=== PATIENT | male | born 1990 | race Caucasian/White ===

== ENCOUNTER 2018-02-19 22:18 | Emergency (ER) | payer OTHER ==
[2018-02-19] MEDS ORDERED: Cyclobenzaprine TAB* 10 MG PO ONE (22:45)
[2018-02-19] MEDS ORDERED: Ketorolac INJ* 60 MG/2 ML VIAL IM ONE (22:45)
--- NOTE | 2018-02-20 00:07 | ED ---
Jay Santana Nikita, scribed for Michael Baker MD on 02/19/18 at 2245 . Back Pain - HPI Summary HPI Summary: This patient is a 27 year old M BIBA to ED with a chief complaint of lower back pain since 3 days ago. The CC is described as sharp, non-radiating, and worsened since onset. The patient rates the pain 10/10 in severity. Symptoms aggravated by movement and walking. Symptoms alleviated by nothing (patient took 2 ibuprofen in the AM, 2 Advil 1 hour ago). Patient denies urinary problems , focal weakness, and numbness. In 2009, patient reports similar pain due to strenuous activity but has resolved then. - History of Current Complaint Chief Complaint: EDBackInjuryPain Stated Complaint: BACK PAIN Time Seen by Provider: 02/19/18 22:27 Hx Obtained From: Patient Onset/Duration: Sudden Onset, Lasting Days - 3 days ago, Still Present, Worse Since - onset Onset/Duration: Started Days Ago - 3 days ago, Still Present, Worse Since - onset Timing: Constant, Lasting Days - 3 days ago Back Pain Location: Is Discrete @ - lower back Severity Initially: Severe Severity Currently: Severe Pain Intensity: 10 Pain Scale Used: 0-10 Numeric Character: Sharp Aggravating Symptom(s): Movement, Walking Alleviating Symptom(s): Nothing - patient took 2 ibuprofen in the AM, 2 Advil 1 hour ago Associated Signs And Symptoms: Positive: Other - Patient denies urinary problems , focal weakness, and numbness. - Allergies/Home Medications Allergies/Adverse Reactions: Allergies Allergy/AdvReac Type Severity Reaction Status Date / Time No Known Allergies Allergy Verified 02/19/18 22:24 PMH/Surg Hx/FS Hx/Imm Hx Endocrine/Hematology History: Denies: Hx Diabetes Cardiovascular History: Denies: Hx Coronary Artery Disease, Hx Hypertension Musculoskeletal History: Reports: Hx of Fracture(s) - leg - Immunization History Date of Tetanus Vaccine: utd Date of Influenza Vaccine: fall 2016 Infectious Disease History: No Infectious Disease History: Denies: Traveled Outside the [place] in Last 30 Days - Family History Known Family History: Positive: Hypertension Negative: Cardiac Disease, Diabetes - Social History Alcohol Use: Weekly Substance Use Type: Reports: Marijuana Substance Use Comment - Amount & Last Used: last night Smoking Status (MU): Former Smoker Review of Systems Positive: no symptoms reported Positive: Other - lower back pain Neurological: Other - denies focal weakness or numbness All Other Systems Reviewed And Are Negative: Yes Physical Exam - Summary Physical Exam Summary: VITAL SIGNS: Reviewed. GENERAL: ~Patient is a well-developed and nourished MALE who is lying comfortable in the stretcher. Patient is not in any acute respiratory distress. HEAD AND FACE: No signs of trauma. No ecchymosis, hematomas or skull depressions. No sinus tenderness. EYES: PERRLA, EOMI x 2, No injected conjunctiva, no nystagmus. EARS: Hearing grossly intact. Ear canals and tympanic membranes are within normal limits. MOUTH: Oropharynx within normal limits. NECK: Supple, trachea is midline, no adenopathy, no JVD, no carotid bruit, no c- spine tenderness, neck with full ROM. CHEST: Symmetric, no tenderness at palpation LUNGS: Clear to auscultation bilaterally. No wheezing or crackles. CVS: Regular rate and rhythm, S1 and S2 present, no murmurs or gallops appreciated. ABDOMEN: Soft, non-tender. No signs of distention. No rebound, no guarding, and no masses palpated. Bowel sounds are normal. EXTREMITIES: No edema, no cyanosis or clubbing. Bilateral straight leg test is 30 degrees on both sides. MUSCULOSKELETAL: No lumbar cervical tenderness. NEURO: Alert and oriented x 3. No acute neurological deficits. Speech is normal and follows commands. SKIN: Dry and warm Triage Information Reviewed: Yes Vital Signs On Initial Exam: Initial Vitals Temp Pulse Resp BP Pulse Ox 99.4 F 65 16 105/51 100 02/19/18 22:23 02/19/18 22:23 02/19/18 22:23 02/19/18 22:23 02/19/18 22:23 Vital Signs Reviewed: Yes Diagnostics - Vital Signs Vital Signs Temp Pulse Resp BP Pulse Ox 02/19/18 22:31 55 105/51 100 02/19/18 22:27 68 100 02/19/18 22:23 99.4 F 65 16 105/51 100 - Laboratory Lab Statement: Any lab studies that have been ordered have been reviewed, and results considered in the medical decision making process. Re-Evaluation - Re-Evaluation First Eval Re-Evaluation Time: 23:40 Comment: This patient feels a bit better. Back Pain Course/Dx - Course Assessment/Plan: This patient is a 27 year old M BIBA to ED with a chief complaint of lower back pain since 3 days ago. In the ED course, the patient was given Toradol and Flexeril. The patient was walking here in the ED. He will be discharged. - Diagnoses Differential Diagnosis/HQI/PQRI: Positive: Other - low back pain Provider Diagnoses: Low back pain Discharge - Sign-Out/Discharge Documenting (check all that apply): Discharge/Admit/Transfer - Discharge Plan Condition: Stable Disposition: HOME Prescriptions: Cyclobenzaprine TAB* [Flexeril 10 MG TAB*] 10 mg PO TID PRN #20 tab PRN Reason: Spasms - Back Ibuprofen TAB* [Motrin TAB* 800 MG] 800 mg PO Q6H PRN #30 tab PRN Reason: Pain - Back Patient Education Materials: Acute Low Back Pain (ED) Referrals: [facility] [Provider Group] (Follow up with your PCP in 1-2 days.) Additional Instructions: RETURN TO EMERGENCY DEPARTMENT FOR ANY NEW OR WORSENING SYMPTOMS. - Billing Disposition and Condition Condition: STABLE Disposition: HOME The documentation as recorded by the Jay esquivel Nikita accurately reflects the service I personally performed and the decisions made by me, Michael Baker MD.
[2018-02-20 00:18] VITALS: BP 128/65
== END 2018-02-20 00:20 | disposition home or self-care (01) ==
LOC: ED 22:18
DX: M54.5 Low back pain (principal); Z87.891 Personal history of nicotine dependence
CPT/HCPCS: 99284; A9270-GY; J1885